=== PATIENT | female | born 1945 | race Caucasian/White ===

== ENCOUNTER → 2016-10-01 | Outpatient (CLI) | payer MEDICARE, OTHER ==
[2016-10-01 10:12] LABS: Basophils # (A) 0.1 k/uL (0-0.2); Basophils % (A) 1 %; CH 30.8; CHCM 33.1; Eosinophils # (A) 0.1 k/uL (0-0.7); Eosinophils % (A) 2 %; HCT 41.8 % (34.0-46.0); HDW 2.07; HGB 13.8 gm/dL (11.4-16.0); Luc # (Auto) 0.17; Luc % (Auto) 3; Lymphocytes # (A) 1.7 k/uL (1.0-4.8); Lymphocytes % (A) 26 %; MCH 30.8 pg (25.0-35.0); MCHC 32.9 g/dL (31.0-37.0); MCV 93.5 fL (80.0-100.0); Mean Platelet Volume 6.4; Monocytes # (A) 0.3 k/uL (0-1.0); Monocytes % (A) 4 %; Neutrophils # (A) 4.1 k/uL (1.3-7.7); Neutrophils % (A) 64 %; RBC 4.48 m/uL (3.80-5.40); RDW 12.6 % (11.5-15.5); WBC 6.4 k/uL (3.8-10.6); WBC (Perox) 6.74
[2016-10-01 10:20] LABS: ALT 33 U/L (9-52); AST 24 U/L (14-36); Alkaline Phosphatase 83 U/L (38-126); Anion Gap 12 mmol/L; Blood Urea Nitrogen 21 mg/dL (7-17); Calcium 9.7 mg/dL (8.4-10.2); Carbon Dioxide 24 mmol/L (22-30); Chloride 105 mmol/L (98-107); Cholesterol 210 mg/dL (<200); Glucose 103 mg/dL (74-99); HDL Cholesterol 81 mg/dL (40-60); Non-African American GFR(MDRD) 55 (>60 ml/min/1.73 sqM); Potassium 4.8 mmol/L (3.5-5.1); Sodium 141 mmol/L (137-145); Total Bilirubin 0.4 mg/dL (0.2-1.3); Triglycerides 88 mg/dL (<150)
[2016-10-01 11:48] LABS: Hepatitis C Virus IgG Ab Negative (Negative); Hepatitis C Virus IgG Index 0.04
--- NOTE | 2016-10-05 13:40 | MM ---
Reason for exam: screening (asymptomatic). Last mammogram was performed 2 years and 8 months ago. History: Patient is postmenopausal. Family history of premenopausal breast cancer in cousin at age 40. Physical Findings: A clinical breast exam by your physician is recommended on an annual basis and results should be correlated with mammographic findings. MG Screening Mammo w CAD Bilateral CC and MLO view(s) were taken. Prior study comparison: January 25, 2014, bilateral MG screening mammo w CAD. January 24, 2013, bilateral digital screening mammo w/CAD. The breast tissue is heterogeneously dense. This may lower the sensitivity of mammography. There is no discrete abnormality. ASSESSMENT: Negative, BI-RAD 1 RECOMMENDATION: Routine screening mammogram of both breasts in 1 year.
== END | disposition home or self-care (01) ==
LOC: LABWHC1 09:23
PROVIDERS: ATTEND Physician Assistant
DX: Z12.31 Encounter for screening mammogram for malignant neoplasm of breast (principal); Z20.9 Contact with and (suspected) exposure to unspecified communicable disease; E55.9 Vitamin D deficiency, unspecified
CPT/HCPCS: 86803; 84439; 80061; 80053; 84443; 85025; 82306; 36415; G0202

== ENCOUNTER → 2016-10-05 | Outpatient (CLI) | payer MEDICARE, BC ==
--- NOTE | 2016-10-06 05:04 | WWHP ---
DATE OF SERVICE: 10/05/2016 CHIEF COMPLAINT: The patient is here for her routine gynecologic exam. HPI: This is a 71-year-old, G2, P2 with an LMP of 1991. The patient is without gynecologic complaints. She states she had a bad bladder infection about 3 weeks ago, which was treated in [place]. She did have a follow-up urine test recently with Dr. Guaman. She believes that was negative. Most of her urinary symptoms have completely resolved, but she still states that at the very end of voiding she has a slight irritated feeling in the pelvic area. She denies any vaginal discharge or pruritus. Her last prior urinary tract infection was about 10 years ago. She previously saw Dr. Watts for her gynecologic exams and her last one was about 3 years ago. PAST MEDICAL HISTORY: IBS, asthma, anxiety, and chronically elevated platelet count. Dr. 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 MEDICATIONS: 1. Singulair 1 daily. 2. Xanax 0.25 mg p.r.n. 3. Aspirin 81 mg daily. 4. Vitamin D3, 1 daily. 5. Probiotic daily. 6. Fish oil supplement 1000 mg daily. 7. Flaxseed oil supplement daily. ALLERGIES: No known drug allergies. PAST SURGICAL HISTORY: Abdominal exploratory laparotomy in her 30s, which was negative. She has had about 4 colonoscopies and the most recent one was in 2014 with an upper endoscopy. PAST OB HISTORY: Two vaginal deliveries. PAST M1A1 [employer] HISTORY: She has no history of STDs and has been menopausal since 1991. SOCIAL HISTORY: She denies tobacco and drug use and has about 1 to 2 alcoholic drinks per day. She has been since 1968 and is retired. FAMILY HISTORY: Father of a brain tumor. Mother in an MVA. Paternal grandmother had some type of cancer, but she is uncertain of the type. REVIEW OF SYSTEMS: She believes she has gained about 4 to 5 pounds over the last year. She denies respiratory, cardiac problems. GI: Occasional IBS symptoms. : She got over a bladder infection as above. She denies any significant urinary leakage except when she had the bladder infection. She denies maltreatment. She did trip over a step earlier this year but denies any other falling. PHYSICAL EXAM: Initial blood pressure 165/87. Repeat blood pressure 142/62. Height 5 feet 2 inches. Weight 124 pounds. Temperature 96.1, pulse 123. This a well-developed, well-nourished white female who is alert and oriented x3 in no acute distress. HEENT is within normal limits. NECK: Supple without mass or thyromegaly. CHEST AND LUNGS: Clear to auscultation. HEART: Mild tachycardia. Breasts are without mass or discharge. Axillary exam is negative for adenopathy. BACK: Negative for CVA tenderness. ABDOMEN: Soft with minimal generalized abdominal tenderness. She states her abdomen has always felt slightly tender and sore for many years and this is not new for her. She states it feels like a muscle soreness. There are no palpable abdominal masses. PELVIC EXAM: External genitalia reveals mild to moderate atrophy without lesions. Cervix and vagina reveal mild to moderate atrophy without lesions. There is no evidence of prolapse. The uterus is midposition, nongravid size and nontender. There are no palpable adnexal masses or tenderness. Rectovaginal exam is negative for mass or tenderness and is negative for occult blood. EXTREMITIES: Nontender. IMPRESSION: 1. A 71-year-old menopausal female with normal gynecologic exam. 2. Elevated blood pressure. PLAN: 1. Pap smear was performed. 2. Self breast examination was discussed. 3. Mammogram was recently done on 10/01/2016 and was negative. She will repeat this in one year. 4. She will do home blood pressure monitoring and will follow up with her primary care physician for blood pressure elevation. 5. Osteoporosis prevention was discussed. I have recommended bone density testing and an order slip was given to the patient for this. 6. She will return in one year.
== END ==
LOC: WWCWWP 13:49
PROVIDERS: ATTEND Obstetrics & Gynecology
DX: Z53.9 Procedure and treatment not carried out, unspecified reason (principal)

== ENCOUNTER → 2016-10-29 | Outpatient (CLI) | payer MEDICARE, OTHER ==
--- NOTE | 2016-10-29 09:20 | US ---
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 Patient states feeling lightheaded and dizzy at time s EXAM MEASUREMENTS: RIGHT: Peak Systolic Velocity (PSV) cm/sec ----- Right CCA: 99.3 ----- Right ICA: 84.4 ----- Right ECA: 108.6 ICA/CCA ratio: 0.8 RIGHT: End Diastole cm/sec ----- Right CCA: 24.8 ----- Right ICA: 24.9 ----- Right ECA: 10.6 LEFT: Peak Systolic Velocity (PSV) cm/sec ----- Left CCA: 78.9 ----- Left ICA: 100.9 ----- Left ECA: 109.6 ICA/CCA ratio: 1.3 LEFT: End Diastole cm/sec ----- Left CCA: 20.5 ----- Left ICA: 33.7 ----- Left ECA: 9.8 VERTEBRALS (direction of flow): Right Vertebral: Antegrade Left Vertebral: Antegrade Bilateral wall thickening. No plaque or significant stenosis seen. Elevated left proximal CCA. Grayscale images show no significant plaque at carotid bulb level bilaterally. Velocity measurements and ratios in visualized portion of both internal carotid arteries are within normal limits. IMPRESSION: No hemodynamically significant stenosis in either internal carotid artery.
--- NOTE | 2016-10-29 12:16 | ECHOS ---
DATE OF SERVICE: 10/29/2016 AGE: 71Y SEX: F HT: 62 WT: 120 lbs. Protocol Dmitriy: X Others: Stress Echo Stage: II Dur. of Exercise: 5 minutes *Heart Rate Blood Pressure *Rest: 92 Rest: 144/82 * *Max. Achieved: 154 Maximum BP: 186/56 85% PMHR: 128 100% PMHR: 151 *METS: 6.8 INDICATIONS: Endocarditis. MEDICATIONS: Xanax, aspirin. Patient was exercised for a total period of 5 minutes. A peak heart rate of 154 was achieved. Maximum blood pressure of 186/56 mmHg was noted. Resting EKG shows normal sinus rhythm with normal AL interval and QRS duration and normal ST-T waves. During exercise, J-point depression with upsloping ST segments are noted. The baseline echocardiographic images reveal a normal left ventricular chamber size with normal left ventricular systolic function. In the immediate postexercise period, normal increase in the wall thickness and contractility is noted. FINAL IMPRESSION: This stress echocardiographic study is negative for stress-induced ischemia. EKG portion of the stress test is not suggestive of ischemia. Patient's exercise tolerance is normal.
== END | disposition home or self-care (01) ==
LOC: RADUSMAIN 08:06
PROVIDERS: ATTEND Family Medicine
DX: I38 Endocarditis, valve unspecified (principal); G45.1 Carotid artery syndrome (hemispheric)
CPT/HCPCS: 93017; 93350; 93880

== ENCOUNTER → 2017-03-01 | Outpatient (CLI) | payer MEDICARE, OTHER ==
--- NOTE | 2017-03-02 07:35 | USB ---
Reason for exam: clinical finding. History: Patient is postmenopausal. Family history of premenopausal breast cancer in cousin at age 40. Indicated problem(s): large axillary lymph nodes in both breasts. Physical Findings: Nurse Summary: soft swollen areas in the right and left axilla (nurse evonne). US Breast Axilla RT Right breast ultrasound including axilla demonstrates no cystic or solid lesion seen. These results were verbally communicated with the patient and result sheet given to the patient on 03/01/17. ASSESSMENT: Negative, BI-RAD 1 RECOMMENDATION: Return to routine screening mammogram schedule for both breasts. Back on schedule. Manage on a clinical basis with regard to swollen axilla.
== END | disposition home or self-care (01) ==
LOC: RADUSWWP 14:18
PROVIDERS: ATTEND Internal Medicine Hematology & Oncology
DX: R22.9 Localized swelling, mass and lump, unspecified (principal)

== ENCOUNTER → 2017-09-13 | Outpatient (CLI) | payer MEDICARE, OTHER ==
[2017-09-13 08:11] LABS: Basophils # (A) 0.1 k/uL (0-0.2); Basophils % (A) 1 %; Eosinophils # (A) 0.2 k/uL (0-0.7); Eosinophils % (A) 3 %; HCT 43.8 % (34.0-46.0); HGB 14.3 gm/dL (11.4-16.0); Lymphocytes # (A) 1.9 k/uL (1.0-4.8); Lymphocytes % (A) 28 %; MCH 29.5 pg (25.0-35.0); MCHC 32.7 g/dL (31.0-37.0); MCV 90.1 fL (80.0-100.0); Mean Platelet Volume 6.8; Monocytes # (A) 0.3 k/uL (0-1.0); Monocytes % (A) 5 %; Neutrophils # (A) 4.1 k/uL (1.3-7.7); Neutrophils % (A) 61 %; Platelet Count 504 k/uL (150-450); RBC 4.86 m/uL (3.80-5.40); WBC 6.8 k/uL (3.8-10.6)
[2017-09-13 08:42] LABS: Albumin 4.7 g/dL (3.5-5.0); Potassium 4.8 mmol/L (3.5-5.1); Total Bilirubin 0.4 mg/dL (0.2-1.3); Total Protein 7.3 g/dL (6.3-8.2)
== END | disposition home or self-care (01) ==
LOC: LABWHC1 07:43
PROVIDERS: ATTEND Family Medicine
DX: Z00.00 Encounter for general adult medical examination without abnormal findings (principal); E78.5 Hyperlipidemia, unspecified; J45.30 Mild persistent asthma, uncomplicated; D47.3 Essential (hemorrhagic) thrombocythemia
CPT/HCPCS: 36415; 80053; 80061; 84443; 85025

== ENCOUNTER → 2018-09-25 | Outpatient (CLI) | payer MEDICARE ==
[2018-09-25 10:24] LABS: Basophils # (A) 0.1 k/uL (0-0.2); Basophils % (A) 1 %; Eosinophils # (A) 0.2 k/uL (0-0.7); Eosinophils % (A) 3 %; HCT 41.6 % (34.0-46.0); HGB 13.4 gm/dL (11.4-16.0); Lymphocytes # (A) 1.4 k/uL (1.0-4.8); Lymphocytes % (A) 22 %; MCH 29.4 pg (25.0-35.0); MCHC 32.2 g/dL (31.0-37.0); MCV 91.4 fL (80.0-100.0); Mean Platelet Volume 6.6; Monocytes # (A) 0.5 k/uL (0-1.0); Monocytes % (A) 7 %; Neutrophils % (A) 63 %; Platelet Count 524 k/uL (150-450); RBC 4.55 m/uL (3.80-5.40); WBC 6.3 k/uL (3.8-10.6)
[2018-09-25 17:29] LABS: ALT 26 U/L (8-44); AST 26 U/L (13-35); Albumin/Globulin Ratio 2.37 (1.60-3.17); Alkaline Phosphatase 88 U/L (41-126); Calcium 9.4 mg/dL (8.7-10.3); Carbon Dioxide 25.6 mmol/L (21.6-31.8); Chloride 104 mmol/L (96-109); Cholesterol 169 mg/dL (0-200); Globulin 1.9 g/dL (1.6-3.3); Glucose 94 mg/dL (70-110); Sodium 138 mmol/L (135-145); Total Bilirubin 0.5 mg/dL (0.3-1.2); Total Protein 6.4 g/dL (6.2-8.2); Triglycerides <50.0 mg/dL (0.0-149.0); VLDL Calculation 9.98 mg/dL (5.00-40.00)
== END | disposition home or self-care (01) ==
LOC: LABWHC1 09:40
PROVIDERS: ATTEND Family Medicine
DX: E78.5 Hyperlipidemia, unspecified (principal); D47.3 Essential (hemorrhagic) thrombocythemia
CPT/HCPCS: 36415; 80053; 80061; 85025

== ENCOUNTER → 2019-03-02 | Outpatient (CLI) | payer MEDICARE ==
--- NOTE | 2019-03-05 08:21 | MM ---
Reason for exam: screening (asymptomatic). Last mammogram was performed 2 years and 5 months ago. History: Patient is postmenopausal. Family history of premenopausal breast cancer in cousin at age 40. Physical Findings: A clinical breast exam by your physician is recommended on an annual basis and results should be correlated with mammographic findings. MG 3D Screening Mammo W/Cad Bilateral CC and MLO view(s) were taken. Prior study comparison: October 01, 2016, bilateral MG screening mammo w CAD. January 25, 2014, bilateral MG screening mammo w CAD. The breast tissue is heterogeneously dense. This may lower the sensitivity of mammography. Finding: There is a stable 7 mm equal density (isodense) mass in the central position of the left breast. Asymmetric breast tissue. No significant changes in finding since January 25, 2014 and October 01, 2016. ASSESSMENT: Benign, BI-RAD 2 RECOMMENDATION: Routine screening mammogram of both breasts in 1 year.
== END | disposition home or self-care (01) ==
LOC: RADMAMWWP 07:51
PROVIDERS: ATTEND Internal Medicine Hematology & Oncology
DX: Z12.31 Encounter for screening mammogram for malignant neoplasm of breast (principal)
CPT/HCPCS: 77063; 77067

== ENCOUNTER → 2020-01-16 | Outpatient (CLI) | payer MEDICARE ==
[2020-01-16 17:43] LABS: Anion Gap 8.6 mmol/L (4.00-12.00); BUN/Creat Ratio 21.11 Ratio (12.00-20.00); Calcium 9.8 mg/dL (8.7-10.3); Carbon Dioxide 25.4 mmol/L (21.6-31.8); Chol/HDL Ratio 2.36; Non-African American GFR(CKD) 63.9 (60.0-200.0); Potassium 4.8 mmol/L (3.5-5.5)
== END | disposition home or self-care (01) ==
LOC: LABWHC1 08:58
PROVIDERS: ATTEND Physician Assistant
DX: Z00.00 Encounter for general adult medical examination without abnormal findings (principal); E78.5 Hyperlipidemia, unspecified; R00.2 Palpitations
CPT/HCPCS: 36415; 80048; 80061; 84443

== ENCOUNTER → 2021-02-02 | Outpatient (CLI) | payer MEDICARE ==
--- NOTE | 2021-02-04 10:10 | MM ---
Reason for exam: screening (asymptomatic). Last mammogram was performed 1 year and 11 months ago. History: Patient is postmenopausal. Family history of premenopausal breast cancer in cousin at age 40. Physical Findings: A clinical breast exam by your physician is recommended on an annual basis and results should be correlated with mammographic findings. MG 3D Screening Mammo W/Cad Bilateral CC and MLO view(s) were taken. XCCL view(s) were taken of the left breast. Prior study comparison: March 02, 2019, bilateral MG 3d screening mammo w/cad. October 01, 2016, bilateral MG screening mammo w CAD. January 25, 2014, bilateral MG screening mammo w CAD. The breast tissue is heterogeneously dense. This may lower the sensitivity of mammography. No significant changes when compared with prior studies. ASSESSMENT: Benign, BI-RAD 2 RECOMMENDATION: Routine screening mammogram of both breasts in 1 year.
== END | disposition home or self-care (01) ==
LOC: RADMAMWWP 14:41
PROVIDERS: ATTEND Family Medicine
DX: Z12.31 Encounter for screening mammogram for malignant neoplasm of breast (principal); Z80.3 Family history of malignant neoplasm of breast; Z78.0 Asymptomatic menopausal state
CPT/HCPCS: 77063; 77067

== ENCOUNTER 2021-02-13 09:29 | Day surgery (SDC) | payer MEDICARE ==
[2021-02-10 16:21] VITALS: BMI 21.9
[~2021-02-13 09:29] MED LIST: LACTATED RINGERS 1,000 ML IV SCH
[2021-02-13 09:55] VITALS: RESP 16
[2021-02-13 10:00] VITALS: TEMP 97.5
[2021-02-13] MEDS ORDERED: LIDOCAINE 1% (10MG/ML) FOR IV START INTRADERMA ONE (10:07)
[2021-02-13] MEDS ORDERED: PROPOFOL 10 MG/ML 20 ML VIAL IV ONE (10:56)
[2021-02-13] MEDS ORDERED: LIDOCAINE 1% INJ 10MG/ML (20 ML MDV) ONE (10:56)
--- NOTE | 2021-02-13 11:16 | P.PCN ---
Date of Procedure: 02/13/21 Procedure(s) Performed: BRIEF HISTORY: Patient is a 75-year-old pleasant white female scheduled for an elective colonoscopy as a part of evaluation of prior history of colon polyps. Last colonoscopy was 5 years ago. PROCEDURE PERFORMED: Colonoscopy with snare polypectomy. PREOPERATIVE DIAGNOSIS: History of Polyps. IV sedation per Anesthesia. PROCEDURE: After informed consent was obtained, the patient, was brought into the endoscopy unit. IV sedation was administered by Anesthesia under continuous monitoring. Digital rectal examination was normal. Initially the Olympus CF-160 flexible video colonoscope was then inserted in the rectum, gradually advanced into the cecum without any difficulty. Careful examination was performed as the scope was gradually being withdrawn. Ileocecal valve and the appendiceal orifice were visualized and appeared normal. Prep was excellent. Mucosa of the cecum, ascending colon, transverse colon, descending colon, appeared normal. In the distal sigmoid colon there was a 7-8 mm polyp that was removed by snare polypectomy. Rest of the sigmoid colon, and rectum appeared normal. Retroflexion was performed in the rectum and no lesions were seen. The patient tolerated the procedure well. IMPRESSION: 7-8 mm; sigmoid polyp status post polypectomy Rest of the colon appeared normal RECOMMENDATIONS: Findings of this examination were discussed with the patient as well as her family. She was advised to follow with the biopsy results. If the biopsy results adenoma she can have a repeat colonoscopy in 5 years.
[2021-02-13 11:34] VITALS: BP 120/72; PULSE 71
== END 2021-02-13 11:52 | disposition home or self-care (01) ==
LOC: ORWHC2ENDO 09:29
PROVIDERS: ATTEND Internal Medicine Gastroenterology
DX: Z12.11 Encounter for screening for malignant neoplasm of colon (principal); D12.5 Benign neoplasm of sigmoid colon; Z86.010 Personal history of colon polyps; E78.5 Hyperlipidemia, unspecified; I34.0 Nonrheumatic mitral (valve) insufficiency; J45.909 Unspecified asthma, uncomplicated; F41.9 Anxiety disorder, unspecified; F32.9 Major depressive disorder, single episode, unspecified; K58.9 Irritable bowel syndrome, unspecified; Z79.82 Long term (current) use of aspirin; Z79.899 Other long term (current) drug therapy
CPT/HCPCS: 88305; 45385; J2001; J2704

== ENCOUNTER → 2023-04-14 | Outpatient (CLI) | payer MEDICARE ==
--- NOTE | 2023-04-18 19:22 | MM ---
Reason for Exam: Screening (asymptomatic). Last mammogram was performed 2 year(s) and 3 month(s) ago. Patient History: Menarche at age 16. First Full-Term at age 27. Postmenopausal. Maternal cousin had breast cancer, age 40. Risk Values: Ligia 5 year model risk: 1.8%. NCI Lifetime model risk: 3.9%. Prior Study Comparison: 10/01/2016 Bilateral Screening Mammogram, [facility]. 03/02/2019 Bilateral Screening Mammogram, [facility]. 02/02/2021 Bilateral Screening Mammogram, [facility]. Tissue Density: The breast tissue is heterogeneously dense. This may lower the sensitivity of mammography. Findings: Analyzed By CAD. Areas of asymmetric density on both sides remain unchanged. There is no suspicious group of microcalcifications or new suspicious mass in either breast. Overall Assessment: Benign, BI-RAD 2 Management: Screening Mammogram of both breasts in 1 year. . Patient should continue monthly self-breast exams. A clinical breast exam by your physician is recommended on an annual basis. This exam should not preclude additional follow-up of suspicious palpable abnormalities. Note on Ligia scores and lifetime risk: 1. A Ligia score greater than 3% is considered moderate risk. If this is the case, consider specialist referral to assess eligibility for a risk reducing agent. 2. If overall lifetime risk for the development of breast cancer is 20% or higher, the patient may qualify for future screening with alternating mammogram and breast MRI. Electronically signed and approved by: Roque Camacho M.D. Radiologist
== END | disposition home or self-care (01) ==
LOC: RADMAMWWP 14:46
PROVIDERS: ATTEND Internal Medicine Hematology & Oncology
DX: Z12.31 Encounter for screening mammogram for malignant neoplasm of breast (principal); Z78.0 Asymptomatic menopausal state; Z80.3 Family history of malignant neoplasm of breast
CPT/HCPCS: 77063; 77067

== ENCOUNTER → 2023-10-12 | Outpatient (CLI) | payer MEDICARE ==
--- NOTE | 2023-10-12 20:15 | MR ---
EXAMINATION TYPE: MR lumbar spine wo/w con DATE OF EXAM: 10/12/2023 4:27 PM CLINICAL INDICATION:Female, 78 years old with history of M54.42 LUMBAGO WITH SCIATICA, LEFT SIDE; PHH , Lower back pain, BLE radiculopathy, greater on the left. COMPARISON: None TECHNIQUE: Multi planar, multi sequence imaging was performed utilizing: T1-weighted, T2-weighted, a nd turbo inversion recovery imaging of the lumbar spine. IV Contrast: 5 cc Gadavist. (None if empty) FINDINGS: Alignment: Scoliosis changes. No abnormal vertebral body height loss. Cord: The conus medullaris and the distal spinal cord appear unremarkable with regards to their signa l intensity and morphology. No abnormal postcontrast enhancement. Bones/Discs: Mild degeneration changes throughout the spine with osteophyte formation and facet joint arthropathy. Intervertebral disc signal is maintained. There is some reactive post contrast enhancem ent of the adjoining endplates of L3-L4 on the right. T12-L1: No evidence of significant spinal canal stenosis or neural foraminal stenosis. L1-L2: No evidence of significant spinal canal stenosis or neural foraminal stenosis. L2-L3: Disc bulge and facet joint arthropathy result in mild spinal canal and moderate right and mild left neural foraminal stenosis. L3-L4: Disc bulge and facet joint arthropathy result in mild spinal canal and moderate to severe righ t and mild to moderate left neural foraminal stenosis. L4-L5: Disc bulge and facet joint arthropathy result in mild to moderate spinal canal and moderate to severe left and moderate right neural foraminal stenosis. L5-S1: The disc has a rounded posterior morphology without significant spinal canal stenosis. Facet j oint arthropathy with moderate left and mild right. Bilateral neural foraminal stenosis. No significant spinal canal or neural foraminal stenosis in the remainder of the visualized levels. Other findings: None. IMPRESSION: 1. No definitive evidence of disc herniation or significant spinal canal stenosis. Reactive degenera tion postcontrast enhancement at L3-L4 otherwise no suspicious postcontrast enhancement. 2. Scoliosis changes with disc degeneration with associated osteoarthritic changes. No neural forami nal stenosis worse at L3-L4 with moderate to severe right and moderate to severe left L4-L5
== END | disposition home or self-care (01) ==
LOC: RADMRIMAIN 15:26
PROVIDERS: ATTEND Family Medicine
DX: M41.86 Other forms of scoliosis, lumbar region (principal); M47.26 Other spondylosis with radiculopathy, lumbar region; M51.16 Intervertebral disc disorders with radiculopathy, lumbar region
CPT/HCPCS: 72158; A9585

== ENCOUNTER → 2023-10-19 | Outpatient (CLI) | payer MEDICARE ==
--- NOTE | 2023-10-19 11:52 | P.OP ---
Date of Procedure: 10/19/23 Preoperative Diagnosis: NS & PSC Postoperative Diagnosis: same Procedure(s) Performed: PIOL, OS Implants: [id number] 18.50 Anesthesia: MAC Surgeon: Fadi Morfin Pathology: none sent Condition: stable Disposition: same day Indications for Procedure: blurry vision Operative Findings: no complications
--- NOTE | 2023-10-19 12:38 | MR ---
EXAMINATION TYPE: MR brain wo/w con DATE OF EXAM: 10/19/2023 12:20 PM COMPARISON: NONE HISTORY: G43.109 MIGRAINE WITH AURA, NOT INTRACTABLE, W/O S CONTRAST: Patient received 5 mL intravenous gadavist contrast. Multiplanar and multispin-echo imaging of the brain was performed . Pre and post contrast enhanced i mages are obtained. The ventricles, basal cisterns and sulci overlying the cerebral convexities are mildly enlarged. There is evidence of mild to moderate confluence periventricular white matter ischemic demyelination. Remote deep white matter insults are also noted. These are nonspecific and could reflect sequela of chronic migraine headaches, vasculitis, small vessel ischemic change as well as Lyme's disease to nam e a few. No acute edema is seen on diffusion weighted imaging. There is no evidence for midline shift or mass effect. Acute intracranial hemorrhage or extra-axial collection is not evident. No enhancing lesions are seen. The paranasal sinuses and mastoid air cells are well-aerated. IMPRESSION: Age-related atrophic and chronic small vessel ischemic change. No acute intracranial process at this time. No enhancing lesions are seen. Nonspecific white matter changes.
== END | disposition home or self-care (01) ==
LOC: RADMRIMAIN 11:05
PROVIDERS: ATTEND Ophthalmology
DX: G43.109 Migraine with aura, not intractable, without status migrainosus (principal); I67.82 Cerebral ischemia
CPT/HCPCS: 70553; A9585